=== PATIENT | male | born 1950 | race Caucasian/White ===

== ENCOUNTER → 2018-08-16 | Outpatient (CLI) | payer OTHER ==
[~2018-08-16] MED LIST: CONTRAST GIVEN. MC PRN; GADOBUTROL 7.5 MMOL/7.5 ML VIAL INT ART ONE; IOHEXOL 300 MG/ML 50 ML VIAL. INT ART ONE; LIDOCAINE 1% Multi-Dose 20 ML VIAL. ID ONE
--- NOTE | 2018-08-16 16:20 | KCIC ---
MR arthrogram of the right shoulder Indication: Chronic pain. Prior surgery in 2018 with rotator cuff and labral repair. Technique: Intra-articular contrast injected into the glenohumeral joint and is reported separately. Routine 4 plane sequences were obtained, including ABER positioning. FINDINGS: Artifact: Moderate motion degradation despite repeating scans. There is still diagnostic information, discussed below. Acromioclavicular joint: Mildly degenerative Rotator cuff: * Supraspinatus-infraspinatus tendon: Complete rupture of the supraspinatus and the anterior infraspinatus tendon with severe retraction to nearly the superior labrum, measuring 4 cm. * Subscapularis tendon: Tendinosis with partial tear * Muscle bulk: Moderate volume loss and fatty infiltration * Subacromial subdeltoid bursa: Contrast enters the bursa Articular cartilage: Mild primary osteoarthritis. Labrum: Posterosuperior labral tear. Biceps tendon: Medial subluxation, perched and flattened over the lesser tuberosity. Bones: No lesion or acute fracture. Soft tissue: No acute findings. Impression: 1. Large rotator cuff tear. Complete retracted rupture of supraspinatus and anterior infraspinatus tendon, partial subscapularis tendon tear. 2. Medial subluxation of the biceps tendon. 3. Posterosuperior labral tear. Electronically signed by: Raghu Villela MD (08/16/2018 4:16 PM) [id number]
--- NOTE | 2018-08-16 17:48 | KCIC ---
PROCEDURE: Right shoulder injection using fluoroscopic guidance, prior to MR. HISTORY: Shoulder pain. TECHNIQUE: The procedure was explained to the patient as were potential risks, including among others infection, bleeding or allergic reaction. All questions were answered. Informed written and verbal consent was obtained. The shoulder was prepped and draped in the usual sterile manner. Following administration of local anesthetic, a 22-gauge needle was advanced into the anterior shoulder. Following negative aspiration, 12 cc of a solution of 5cc Omnipaque-300 contrast, 5 cc 1% lidocaine, 10 cc normal saline, and 0.1 cc gadolinium was injected without difficulty. The needle was removed. There was good hemostasis at the injection site. The patient left in stable condition without immediate complication. Patient was advised as to potential postprocedural complications, and to contact their physician or the emergency room in such event. A single spot image is obtained. FLUOROSCOPY TIME:?54 seconds Electronically signed by: Raghu Villela MD (08/16/2018 5:45 PM) [email or web address]
== END | disposition home or self-care (01) ==
LOC: KCIC 12:26
PROVIDERS: ATTEND Orthopaedic Surgery
DX: S43.081A Other subluxation of right shoulder joint, initial encounter (principal); S43.491A Other sprain of right shoulder joint, initial encounter; M75.101 Unspecified rotator cuff tear or rupture of right shoulder, not specified as traumatic; M19.011 Primary osteoarthritis, right shoulder; Z98.890 Other specified postprocedural states; X58.XXXA Exposure to other specified factors, initial encounter; Y93.89 Activity, other specified; Y92.89 Other specified places as the place of occurrence of the external cause; Y99.8 Other external cause status
CPT/HCPCS: 73040; 73222; A9585; Q9967

== ENCOUNTER → 2018-09-24 | Outpatient (CLI) | payer MEDICARE, OTHER ==
[2018-09-24 08:46] LABS: BASO % 1 % (0-3); EOS # 0.3 x10^3/uL (0.0-0.7); EOS % 4 % (0-3); HEMOGLOBIN 14.5 g/dL (13.0-17.5); LYMPH # 1.3 x10^3/uL (1.0-4.8); LYMPH % 19 % (24-48); MEAN CORPUSCULAR HEMOGLOBIN 29 pg (25-35); MEAN CORPUSCULAR HGB CONC 35 g/dL (31-37); MEAN CORPUSCULAR VOLUME 84 fL (79-100); MONO # 0.8 x10^3/uL (0.0-1.1); MONO % 11 % (0-9); NEUT # 4.6 x10^3uL (1.8-7.7); NEUT % 66 % (31-73); PLATELET COUNT 196 x10^3/uL (140-400); RED CELL DISTRIBUTION WIDTH 13.8 % (11.5-14.5); WHITE BLOOD COUNT 6.9 x10^3/uL (4.0-11.0)
[2018-09-24 09:08] LABS: BILIRUBIN,URINE NEGATIVE (NEG); CLARITY,URINE CLEAR; COLOR,URINE YELLOW; NITRITE,URINE NEGATIVE (NEG); PH,URINE 7.5; PROTEIN,URINE NEGATIVE (NEG-TRACE)
[2018-09-24 09:23] LABS: PROTHROMBIN TIME PATIENT 12.8 SEC (11.7-14.0)
[2018-09-24 09:24] LABS: CALCIUM 9.9 mg/dL (8.5-10.1); CREATININE 0.9 mg/dL (0.7-1.3); GFR 83.9; POTASSIUM 4.2 mmol/L (3.5-5.1)
[2018-09-24 09:26] LABS: BACTERIA,URINE 0 /HPF (0-FEW); RBC,URINE RARE /HPF (0-2); SQUAMOUS EPITHELIAL CELL,UR FEW /LPF; WBC,URINE 0 /HPF (0-4)
== END | disposition home or self-care (01) ==
LOC: LAB 07:54
PROVIDERS: ATTEND Orthopaedic Surgery
DX: M75.121 Complete rotator cuff tear or rupture of right shoulder, not specified as traumatic (principal)
CPT/HCPCS: 36415; 80048; 81001; 82306; 85025; 85610; 85730; 87641